=== PATIENT | male | born 1995 | race Caucasian/White ===

== ENCOUNTER 2019-03-12 02:17 | Inpatient (IN) | payer MEDICAID ==
[~2019-03-12] VITALS: Ht 153.9 cm; Wt 62.1 kg
[2019-03-12] VITALS (23 sets, daily range): BP systolic 109–187; BP diastolic 61–106
[2019-03-12] MEDS ORDERED: ALBUTEROL (0.5%) 2.5MG/0.5ML NEB HHN ONE (02:23)
[2019-03-12] MEDS ORDERED: MAGNESIUM 2 G PREMIX 50 ML IV ONE (02:23)
[2019-03-12] MEDS ORDERED: SUCCINYLCHOLINE CHLORIDE 200MG/10ML IV ONE ×2 (02:24→02:45)
[2019-03-12] MEDS ORDERED: IPRATROPIUM BROMIDE (0.02%) 0.5MG/2.5ML NEB ONE (02:24)
[2019-03-12] MEDS ORDERED: KETAMINE HCL 50 MG/ML 10ML ONE (02:24)
[2019-03-12] MEDS ORDERED: ETOMIDATE 2MG/ML 10ML VIAL IV ONE (02:24)
[2019-03-12] MEDS ORDERED: IPRATROPIUM BROMIDE (0.02%) 0.5MG/2.5ML NEB HHN STA ×2 (02:33→04:25)
[2019-03-12] MEDS ORDERED: ALBUTEROL (0.083%) 2.5MG/3ML NEB HHN STA ×2 (02:33→04:25)
[2019-03-12] MEDS ORDERED: METHYLPREDNISOLONE SOD SUCC 125 MG/2 ML VIAL IV STA (02:33)
[2019-03-12] MEDS ORDERED: MAGNESIUM 2 G PREMIX 50 ML IV STA (02:33)
[2019-03-12] MEDS ORDERED: PROPOFOL 10MG/ML 100ML 100 ML IV SCH (02:45)
[2019-03-12] MEDS ORDERED: CLINDAMYCIN 600 MG in DEXTROSE 5% WATER 50 ML IV ONE (02:45)
[2019-03-12] MEDS ORDERED: CEFTRIAXONE 1 G PREMIX 50 ML IV ONE (02:45)
[2019-03-12] MEDS ORDERED: KETAMINE HCL 50 MG/ML 10ML IV ONE (02:45)
[2019-03-12] MEDS ORDERED: FENTANYL CITRATE/PF 500 MCG in SODIUM CHLORIDE 0.9% 40 ML IV PRN ×3 (03:00→04:20)
[2019-03-12] MEDS ORDERED: PANTOPRAZOLE SODIUM 40 MG/VIAL IV ONE (03:15)
[2019-03-12] MEDS ORDERED: LIDOCAINE HCL 1% 20ML VIAL (Pyxis) INJ ONE (03:28)
[2019-03-12 03:32] LABS: CHLORIDE 108 mEq/L (98-107)
[2019-03-12 03:36] LABS: HEMOGLOBIN 15.9 g/dL (14.0-18.0); MEAN CORPUSCULAR HEMOGLOBIN 30.4 pg (28.0-32.0); MEAN CORPUSCULAR VOLUME 91.7 fL (80.0-94.0); PLATELET 319 x1000/uL (130-400); RED BLOOD CELL COUNT 5.24 mill/uL (4.7-6.1); RED CELL DISTRIBUTION WIDTH 13.2 % (11.6-14.6)
[2019-03-12] MEDS ORDERED: PROPOFOL 10MG/ML 100ML 100 ML IV PRN (04:20)
[2019-03-12 04:38] LABS: BG BASE EXCESS -6.4 mmol/L (-2.0-2.0); BG CARBOXYHEMOGLOBIN 0.3 % (0.5-1.5); BG DEOXYHEMOGLOBIN 0.3 % (0.0-5.0); BG FRACTION INSPIRED OXYGEN 100; BG HCO3 ACT 21.3 mmol/L (22.0-26.0); BG METHEMOGLOBIN 0.4 % (0.0-1.5); BG OXYGEN SATURATION 99.7 % (92.0-98.5); BG PCO2 50.5 mmHg (35.0-45.0); BG PH 7.242 (7.350-7.450); BG PO2 388.4 mmHg (75.0-100.0); BG SAMPLE SITE RIGHT BRACHIAL; BG TIDAL VOLUME(mL) 550 mL; BG TOTAL HEMOGLOBIN 15.1 g/dL (12.0-18.0); BG VENT MODE VENT - A/C; BG VENT RATE 24 set
[2019-03-12] MEDS ORDERED: SODIUM CHLORIDE 0.9% 1000ML BAG (SEPSIS BOLUS) IV ONE (05:15)
[2019-03-12] MEDS ORDERED: MORPHINE SULFATE 2 MG/ML CPJ (NOT FOR IM USE) IV PRN ×2 (06:30→13:45)
[2019-03-12] MEDS ORDERED: METHYLPREDNISOLONE SOD SUCC 40 MG/ML VIAL IV SCH (06:30)
[2019-03-12] MEDS ORDERED: DEXT 5%/0.45% NACL KCL 20MEQ/L 1,000 ML IV SCH (07:00)
[2019-03-12] MEDS: LORAZEPAM 2MG/ML CPJ IV PRN ×2 (07:19→11:03)
[2019-03-12] MEDS: IPRATROPIUM/ALBUTEROL 0.5-3(2.5)MG/3ML NEB HHN SCH ×4 (07:47→20:28)
[2019-03-12] MEDS: FAMOTIDINE 20MG/2ML VIAL IV SCH ×2 (09:07→20:54)
[2019-03-12] MEDS: ENOXAPARIN 40MG/0.4ML SYR SUBCUT SCH (09:08)
[2019-03-12 09:59] LABS: BG BASE EXCESS -5.4 mmol/L (-2.0-2.0); BG CARBOXYHEMOGLOBIN 0.3 % (0.5-1.5); BG DEOXYHEMOGLOBIN 0.5 % (0.0-5.0); BG FRACTION INSPIRED OXYGEN 100; BG METHEMOGLOBIN 0.5 % (0.0-1.5); BG OXYGEN SATURATION 99.5 % (92.0-98.5); BG OXYHEMOGLOBIN 98.7 % (94.0-97.0); BG PCO2 29.9 mmHg (35.0-45.0); BG PH 7.398 (7.350-7.450); BG SAMPLE SITE RIGHT BRACHIAL; BG TIDAL VOLUME(mL) 550 mL; BG TOTAL HEMOGLOBIN 15.1 g/dL (12.0-18.0); BG VENT MODE VENT - A/C; BG VENT RATE 24 set
[2019-03-12 11:44] LABS: BG BASE EXCESS -6.3 mmol/L (-2.0-2.0); BG DEOXYHEMOGLOBIN 1.4 % (0.0-5.0); BG FRACTION INSPIRED OXYGEN 35; BG HCO3 ACT 18.5 mmol/L (22.0-26.0); BG METHEMOGLOBIN 0.4 % (0.0-1.5); BG OXYGEN SATURATION 98.6 % (92.0-98.5); BG OXYHEMOGLOBIN 98.2 % (94.0-97.0); BG PCO2 34.6 mmHg (35.0-45.0); BG PH 7.345 (7.350-7.450); BG PO2 139.1 mmHg (75.0-100.0); BG PRESSURE SUPPORT 8; BG SAMPLE SITE RIGHT BRACHIAL; BG TOTAL HEMOGLOBIN 14.9 g/dL (12.0-18.0); BG VENT MODE VENT - CPAP
[2019-03-12] MEDS: PIPERACILLIN/TAZOBACTAM 3.375 G in DEXT 5% WATER 100 ML IV SCH ×2 (12:37→17:26)
[2019-03-12] MEDS: VANCOMYCIN 1250MG in DEXTROSE 5% WATER 250ML IV SCH (12:37)
[2019-03-12] MEDS: METHYLPREDNISOLONE SOD SUCC 125 MG/2 ML VIAL IV SCH ×2 (12:37→20:54)
[2019-03-12] MEDS ORDERED: ACETAMINOPHEN 650MG/20.3ML UDC NG PRN (13:45)
[2019-03-12] MEDS ORDERED: MAGNESIUM/ALUMINUM HYDROXIDE/SIMETHICONE 30ML UDC NG PRN (13:45)
[2019-03-12] MEDS ORDERED: KETOROLAC 30MG/ML VIAL IV PRN (13:45)
[2019-03-12] MEDS ORDERED: DEXTROSE 50% WATER 50ML SYRINGE IV PRN (13:45)
[2019-03-12] MEDS ORDERED: LORAZEPAM 2MG/ML CPJ IV PRN (13:45)
[2019-03-12] MEDS ORDERED: CEFTRIAXONE 1 G PREMIX 50 ML IV SCH (14:00)
[2019-03-12] MEDS: DEXT 5%/0.45% NACL 1000ML 1,000 ML IV SCH ×2 (14:01→20:55)
[2019-03-12] MEDS: BLOOD SUGAR DIAGNOSTIC STRIP TEST SCH ×2 (14:03→17:59)
[2019-03-12] MEDS ORDERED: DEXT 5%/0.45% NACL 1000ML 1,000 ML IV SCH (15:00)
[2019-03-12 15:39] LABS: BG BASE EXCESS -2.8 mmol/L (-2.0-2.0); BG CARBOXYHEMOGLOBIN 0.5 % (0.5-1.5); BG DEOXYHEMOGLOBIN 1.7 % (0.0-5.0); BG FRACTION INSPIRED OXYGEN 28; BG HCO3 ACT 21.9 mmol/L (22.0-26.0); BG METHEMOGLOBIN 0.4 % (0.0-1.5); BG OXYGEN SATURATION 98.3 % (92.0-98.5); BG OXYHEMOGLOBIN 97.4 % (94.0-97.0); BG PCO2 37.9 mmHg (35.0-45.0); BG PH 7.379 (7.350-7.450); BG PO2 114.2 mmHg (75.0-100.0); BG SAMPLE SITE RIGHT RADIAL; BG TOTAL HEMOGLOBIN 14.9 g/dL (12.0-18.0); BG VENT MODE NASAL CANNULA
[2019-03-12 16:29] LABS: HEPATITIS B SURFACE ANTIGEN NEGATIVE
[2019-03-12] MEDS: INSULIN LISPRO 100 UNITS/ML SUBCUT SCH ×2 (17:59→20:55)
[2019-03-12] MEDS ORDERED: ALBU18HF2 IH (18:59)
[2019-03-13] VITALS (43 sets, daily range): BP systolic 88–130; BP diastolic 41–91
[2019-03-13] MEDS: IPRATROPIUM/ALBUTEROL 0.5-3(2.5)MG/3ML NEB HHN SCH ×6 (00:10→20:33)
[2019-03-13] MEDS: PIPERACILLIN/TAZOBACTAM 3.375 G in DEXT 5% WATER 100 ML IV SCH ×4 (00:11→17:31)
[2019-03-13] MEDS: VANCOMYCIN 1250MG in DEXTROSE 5% WATER 250ML IV SCH ×2 (00:12→11:44)
[2019-03-13] MEDS: METHYLPREDNISOLONE SOD SUCC 125 MG/2 ML VIAL IV SCH ×3 (04:19→20:44)
[2019-03-13 05:47] LABS: HEMATOCRIT. 39.7 % (42.0-52.0); HEMOGLOBIN. 13.5 g/dL (14.0-18.0); MEAN CORPUSCULAR HEMOGLOBIN 30.4 pg (28.0-32.0); MEAN CORPUSCULAR VOLUME 89.3 fL (80.0-94.0); MEAN PLATELET VOLUME 8.6 fl (7.4-10.4); PLATELET 207 x1000/uL (130-400); RED BLOOD CELL COUNT 4.45 mill/uL (4.7-6.1); RED CELL DISTRIBUTION WIDTH 12.9 % (11.6-14.6)
[2019-03-13 05:55] LABS: CHLORIDE 105 mEq/L (98-107)
[2019-03-13 07:28] LABS: PLATELET ESTIMATE NORMAL
[2019-03-13] MEDS: DEXT 5%/0.45% NACL 1000ML 1,000 ML IV SCH (07:37)
[2019-03-13] MEDS ORDERED: INSULIN LISPRO 100 UNITS/ML SUBCUT SCH (07:50)
[2019-03-13] MEDS: BLOOD SUGAR DIAGNOSTIC STRIP TEST SCH ×6 (08:00→21:27)
[2019-03-13] MEDS: FAMOTIDINE 20MG/2ML VIAL IV SCH ×2 (08:07→20:45)
[2019-03-13] MEDS: ENOXAPARIN 40MG/0.4ML SYR SUBCUT SCH (08:08)
[2019-03-13] MEDS: INSULIN LISPRO 100 UNITS/ML SUBCUT SCH ×3 (12:45→21:00)
[2019-03-14] VITALS (20 sets, daily range): BP systolic 112–131; BP diastolic 57–80
[2019-03-14] MEDS: IPRATROPIUM/ALBUTEROL 0.5-3(2.5)MG/3ML NEB HHN SCH ×6 (00:17→21:46)
[2019-03-14] MEDS: PIPERACILLIN/TAZOBACTAM 3.375 G in DEXT 5% WATER 100 ML IV SCH ×5 (00:23→23:38)
[2019-03-14] MEDS: VANCOMYCIN 1250MG in DEXTROSE 5% WATER 250ML IV SCH ×2 (01:02→11:32)
[2019-03-14] MEDS: METHYLPREDNISOLONE SOD SUCC 125 MG/2 ML VIAL IV SCH ×3 (03:49→21:24)
[2019-03-14] MEDS: INSULIN LISPRO 100 UNITS/ML SUBCUT SCH ×4 (08:20→21:00)
[2019-03-14] MEDS: BLOOD SUGAR DIAGNOSTIC STRIP TEST SCH ×4 (09:17→21:24)
[2019-03-14] MEDS: FAMOTIDINE 20MG/2ML VIAL IV SCH ×2 (09:18→21:23)
[2019-03-14] MEDS: ENOXAPARIN 40MG/0.4ML SYR SUBCUT SCH (09:18)
[2019-03-14 12:19] LABS: HEMATOCRIT. 42.5 % (42.0-52.0); HEMOGLOBIN. 14.3 g/dL (14.0-18.0); MEAN CORPUSCULAR HEMOGLOBIN 30.2 pg (28.0-32.0); MEAN CORPUSCULAR VOLUME 89.4 fL (80.0-94.0); MEAN PLATELET VOLUME 8.2 fl (7.4-10.4); PLATELET 242 x1000/uL (130-400); RED BLOOD CELL COUNT 4.75 mill/uL (4.7-6.1); RED CELL DISTRIBUTION WIDTH 13.1 % (11.6-14.6)
[2019-03-14 12:31] LABS: CHLORIDE 105 mEq/L (98-107)
[2019-03-14 12:41] LABS: LDL CHOLESTEROL 64 mg/dL (5-100)
[2019-03-14 12:49] LABS: HDL CHOLESTEROL 66 mg/dL (40-59)
[2019-03-14 12:52] LABS: T4 FREE 1.01 ng/dL (0.76-1.46)
[2019-03-14] MEDS ORDERED: HYDROCODONE/ACETAMINOPHEN 5/325MG TABLET PO PRN (13:00)
[2019-03-14] MEDS ORDERED: DIPHENHYDRAMINE 50MG/ML VIAL IV PRN (13:00)
[2019-03-14 13:27] LABS: PLATELET ESTIMATE NORMAL
[2019-03-14] MEDS ORDERED: LACTULOSE 20G/30ML UDC PO NR (18:30)
[2019-03-15] VITALS: BP 104/44
[2019-03-15] MEDS: IPRATROPIUM/ALBUTEROL 0.5-3(2.5)MG/3ML NEB HHN SCH ×6 (01:34→21:09)
[2019-03-15 04:00] VITALS: BP 101/62
[2019-03-15] MEDS: PIPERACILLIN/TAZOBACTAM 3.375 G in DEXT 5% WATER 100 ML IV SCH ×4 (05:15→23:27)
[2019-03-15] MEDS: METHYLPREDNISOLONE SOD SUCC 125 MG/2 ML VIAL IV SCH ×3 (05:15→21:08)
[2019-03-15] MEDS: INSULIN LISPRO 100 UNITS/ML SUBCUT SCH ×4 (06:16→21:00)
[2019-03-15] MEDS: BLOOD SUGAR DIAGNOSTIC STRIP TEST SCH ×4 (06:16→21:14)
[2019-03-15 07:59] LABS: CHLORIDE 107 mEq/L (98-107)
[2019-03-15 08:20] LABS: HEMOGLOBIN 13.7 g/dL (14.0-18.0); MEAN CORPUSCULAR HEMOGLOBIN 30.7 pg (28.0-32.0); MEAN CORPUSCULAR VOLUME 89.8 fL (80.0-94.0); PLATELET 221 x1000/uL (130-400); RED BLOOD CELL COUNT 4.46 mill/uL (4.7-6.1)
[2019-03-15 08:21] VITALS: BP 106/54
[2019-03-15] MEDS: FAMOTIDINE 20MG/2ML VIAL IV SCH ×2 (09:40→21:08)
[2019-03-15] MEDS: ENOXAPARIN 40MG/0.4ML SYR SUBCUT SCH (09:40)
[2019-03-15 12:00] VITALS: BP 115/70
[2019-03-15] MEDS ORDERED: LORAZEPAM 2MG/ML CPJ IV PRN (16:00)
[2019-03-15] MEDS ORDERED: MORPHINE SULFATE 2 MG/ML CPJ (NOT FOR IM USE) IV PRN (16:04)
[2019-03-15 16:13] VITALS: BP 113/73
[2019-03-15 20:00] VITALS: BP 116/59
[2019-03-15] MEDS: BUDESONIDE 0.5MG/2ML NEB HHN SCH (21:09)
[2019-03-16] VITALS: BP 105/50
[2019-03-16] MEDS: IPRATROPIUM/ALBUTEROL 0.5-3(2.5)MG/3ML NEB HHN SCH ×6 (00:55→21:19)
[2019-03-16 04:00] VITALS: BP 107/53
[2019-03-16] MEDS: PIPERACILLIN/TAZOBACTAM 3.375 G in DEXT 5% WATER 100 ML IV SCH ×3 (05:24→17:25)
[2019-03-16] MEDS: METHYLPREDNISOLONE SOD SUCC 125 MG/2 ML VIAL IV SCH ×3 (05:24→22:00)
[2019-03-16] MEDS: BLOOD SUGAR DIAGNOSTIC STRIP TEST SCH ×4 (06:39→21:00)
[2019-03-16] MEDS: INSULIN LISPRO 100 UNITS/ML SUBCUT SCH ×4 (06:39→21:00)
[2019-03-16 07:54] LABS: HEMATOCRIT. 41.4 % (42.0-52.0); HEMOGLOBIN. 13.9 g/dL (14.0-18.0); LYMPHOCYTES % 8.2 % (20.0-50.0); MEAN CORPUSCULAR HEMOGLOBIN 30.1 pg (28.0-32.0); MEAN CORPUSCULAR VOLUME 89.4 fL (80.0-94.0); MEAN PLATELET VOLUME 8.3 fl (7.4-10.4); MONOCYTES % 6.8 % (2.0-8.0); PLATELET 224 x1000/uL (130-400); RED BLOOD CELL COUNT 4.63 mill/uL (4.7-6.1); RED CELL DISTRIBUTION WIDTH 12.9 % (11.6-14.6)
[2019-03-16 07:55] LABS: CHLORIDE 106 mEq/L (98-107)
[2019-03-16] MEDS: BUDESONIDE 0.5MG/2ML NEB HHN SCH ×2 (08:23→21:19)
[2019-03-16] MEDS: ENOXAPARIN 40MG/0.4ML SYR SUBCUT SCH (08:24)
[2019-03-16] MEDS: FAMOTIDINE 20MG/2ML VIAL IV SCH ×2 (08:24→22:00)
[2019-03-16 20:00] VITALS: BP 116/62
[2019-03-17] VITALS: BP_SYST 116; BP_DIAS 48; BP_DIAS 62
[2019-03-17] MEDS: PIPERACILLIN/TAZOBACTAM 3.375 G in DEXT 5% WATER 100 ML IV SCH ×5 (00:09→23:38)
[2019-03-17] MEDS: IPRATROPIUM/ALBUTEROL 0.5-3(2.5)MG/3ML NEB HHN SCH ×6 (00:41→21:21)
[2019-03-17 04:00] VITALS: BP 113/64
[2019-03-17] MEDS: METHYLPREDNISOLONE SOD SUCC 125 MG/2 ML VIAL IV SCH ×3 (05:48→21:27)
[2019-03-17] MEDS: INSULIN LISPRO 100 UNITS/ML SUBCUT SCH ×2 (06:41→21:00)
[2019-03-17] MEDS: BLOOD SUGAR DIAGNOSTIC STRIP TEST SCH ×3 (06:42→21:30)
[2019-03-17 06:48] LABS: HEMATOCRIT 42.1 % (42.0-52.0); HEMOGLOBIN 14.3 g/dL (14.0-18.0); MEAN CORPUSCULAR HEMOGLOBIN 30.3 pg (28.0-32.0); MEAN CORPUSCULAR VOLUME 89.4 fL (80.0-94.0); PLATELET 234 x1000/uL (130-400); RED BLOOD CELL COUNT 4.71 mill/uL (4.7-6.1)
[2019-03-17 07:17] LABS: CHLORIDE 105 mEq/L (98-107)
[2019-03-17 08:00] VITALS: BP 120/65
[2019-03-17] MEDS: FAMOTIDINE 20MG/2ML VIAL IV SCH (08:15)
[2019-03-17] MEDS: ENOXAPARIN 40MG/0.4ML SYR SUBCUT SCH (08:15)
[2019-03-17] MEDS: BUDESONIDE 0.5MG/2ML NEB HHN SCH ×2 (09:34→21:21)
[2019-03-17 11:55] VITALS: BP 110/60
[2019-03-17 16:00] VITALS: BP 116/72
[2019-03-17 20:13] VITALS: BP 122/80
[2019-03-17] MEDS: FAMOTIDINE 20MG TABLET PO SCH (21:27)
[2019-03-18 00:14] VITALS: BP 103/52
[2019-03-18] MEDS: IPRATROPIUM/ALBUTEROL 0.5-3(2.5)MG/3ML NEB HHN SCH ×6 (01:27→20:10)
[2019-03-18 04:00] VITALS: BP 100/57
[2019-03-18] MEDS: METHYLPREDNISOLONE SOD SUCC 125 MG/2 ML VIAL IV SCH ×3 (05:37→22:40)
[2019-03-18] MEDS: PIPERACILLIN/TAZOBACTAM 3.375 G in DEXT 5% WATER 100 ML IV SCH ×3 (05:37→17:43)
[2019-03-18] MEDS: INSULIN LISPRO 100 UNITS/ML SUBCUT SCH ×4 (06:21→21:00)
[2019-03-18] MEDS: BLOOD SUGAR DIAGNOSTIC STRIP TEST SCH ×4 (06:21→21:10)
[2019-03-18 07:34] LABS: HEMATOCRIT. 43.7 % (42.0-52.0); HEMOGLOBIN. 14.6 g/dL (14.0-18.0); MEAN CORPUSCULAR VOLUME 89.6 fL (80.0-94.0); PLATELET 224 x1000/uL (130-400); RED BLOOD CELL COUNT 4.88 mill/uL (4.7-6.1); RED CELL DISTRIBUTION WIDTH 12.8 % (11.6-14.6)
[2019-03-18 07:38] LABS: CHLORIDE 105 mEq/L (98-107)
[2019-03-18 08:00] VITALS: BP 106/60
[2019-03-18] MEDS: FAMOTIDINE 20MG TABLET PO SCH ×2 (08:22→22:40)
[2019-03-18] MEDS: ENOXAPARIN 40MG/0.4ML SYR SUBCUT SCH (08:22)
[2019-03-18] MEDS: BUDESONIDE 0.5MG/2ML NEB HHN SCH ×2 (08:43→20:09)
[2019-03-18 12:00] VITALS: BP 111/66
[2019-03-18 13:10] LABS: PLATELET ESTIMATE NORMAL
[2019-03-18 16:00] VITALS: BP 106/56
[2019-03-18 20:00] VITALS: BP 117/54
[2019-03-19] VITALS: BP 114/71
[2019-03-19 00:22] VITALS: BP_SYST 110; BP_SYST 122; BP_DIAS 60; BP_DIAS 75
[2019-03-19] MEDS: IPRATROPIUM/ALBUTEROL 0.5-3(2.5)MG/3ML NEB HHN SCH ×5 (00:27→15:51)
[2019-03-19] MEDS: PIPERACILLIN/TAZOBACTAM 3.375 G in DEXT 5% WATER 100 ML IV SCH ×4 (00:54→17:30)
[2019-03-19 04:00] VITALS: BP 100/57
[2019-03-19] MEDS: METHYLPREDNISOLONE SOD SUCC 125 MG/2 ML VIAL IV SCH ×2 (06:24→13:26)
[2019-03-19 06:38] LABS: HEMATOCRIT. 43.9 % (42.0-52.0); HEMOGLOBIN. 14.7 g/dL (14.0-18.0); MEAN CORPUSCULAR VOLUME 89.5 fL (80.0-94.0); PLATELET 236 x1000/uL (130-400); RED CELL DISTRIBUTION WIDTH 13.1 % (11.6-14.6)
[2019-03-19 06:49] LABS: CHLORIDE 105 mEq/L (98-107)
[2019-03-19] MEDS: INSULIN LISPRO 100 UNITS/ML SUBCUT SCH ×3 (07:01→17:30)
[2019-03-19] MEDS: BLOOD SUGAR DIAGNOSTIC STRIP TEST SCH ×3 (07:01→17:30)
[2019-03-19 07:58] VITALS: BP 98/46
[2019-03-19] MEDS: FAMOTIDINE 20MG TABLET PO SCH (08:24)
[2019-03-19] MEDS: ENOXAPARIN 40MG/0.4ML SYR SUBCUT SCH (08:24)
[2019-03-19 12:00] VITALS: BP 110/60
[2019-03-19 12:41] LABS: PLATELET ESTIMATE NORMAL
== END 2019-03-19 18:10 | disposition home or self-care (01) | DRG 133 ==
LOC: ER 02:17 → CVICU 02:59 → ENRESERV 03:40 → 8WST 03-14 15:16
PROVIDERS: ADMIT Internal Medicine; ATTEND Internal Medicine
PROC: 0W9930Z Drainage of Right Pleural Cavity with Drainage Device, Percutaneous Approach (ICD-10-PCS; principal; 2019-03-12)
PROC: 5A1935Z Respiratory Ventilation, Less than 24 Consecutive Hours (ICD-10-PCS; 2019-03-12)
PROC: 0BH17EZ Insertion of Endotracheal Airway into Trachea, Via Natural or Artificial Opening (ICD-10-PCS; 2019-03-12)
DX: J96.00 Acute respiratory failure, unspecified whether with hypoxia or hypercapnia (principal); J18.9 Pneumonia, unspecified organism; J45.902 Unspecified asthma with status asthmaticus; J93.83 Other pneumothorax; T79.7XXA Traumatic subcutaneous emphysema, initial encounter; R73.9 Hyperglycemia, unspecified; X58.XXXA Exposure to other specified factors, initial encounter
CPT/HCPCS: 31500; 36415; 36600; 71045; 71250; 80048; 80061; 80202; 82375; 82805; 82962; 83036; 83605; 84439; 84443; 85027; 87070; 94640; 96365; 96367; 96375; 99291; C9113; J0330; J0696; J1650; J1815; J2060; J2270; J2543; J2704; J2930; J3010; J3370; J3475; J3490; J7040; J7060; J7611; J7620; J7626; A4315